=== PATIENT | female | born 1965 | race Caucasian/White ===

== ENCOUNTER 2021-05-24 14:41 | Emergency (ER) | payer BC, MEDICARE ==
[~2021-05-24] VITALS: Ht 167 cm; Wt 200.0 kg
[~2021-05-24 14:41] MED LIST: ARIP10TA2; ARIP2TAB3 PO; ASP81TEC PO; ATOM100C PO; ATOM10CA; ATOM25CA3 PO; CTLP20T PO; DULO30CA PO; FURO-125 PO; HCT25T PO; LABE100T2; LABE100T2 PO; LEVO200T39 PO; MAGN400T39 PO; METO50TA15 PO; MTF500T; MTF500T PO; NALT1TAB PO; NAPR-1071 PO; PANT20TA2 PO; POTASSIUM PO; TOPI25TA2 PO; TPR25T PO
--- NOTE | 2021-05-24 14:57 | ED Cardiac General ---
History of Present Illness General Chief Complaint: Chest Pain Stated Complaint: CP/BACK OF NECK PAIN/PIERRE Source: patient Exam Limitations: no limitations History of Present Illness Date Seen by Provider: May 24, 2021 Time Seen by Provider: 14:47 Initial Comments 56-year-old female with past medical history of CHF, diabetes, hypertension coming in due to chest pressure and feeling slightly short of breath. She woke up this morning at 7 AM and has had constant moderate pressure that nothing seems to make better or worse. She says this happens not infrequently and she is typically diagnosed with anxiety. She says she did take 4 baby aspirin prior to coming. Her vice president network is with a different facility. She says her last echo was "normal". She denies ever having a heart attack or having any stents. She denies ever having a blood clot. Nothing seems to really make the discomfort better or worse. She does say she is around 14 days out from having COVID as well. Allergies and Home Medications Allergies Coded Allergies: shrimp (Verified Allergy, Severe, 04/19/16) Sulfa (Sulfonamide Antibiotics) (Verified Allergy, Unknown, 04/19/16) almond (Unverified Allergy, Unknown, 04/20/16) FROM UNCODED ALLERGIES gluten (Unverified Allergy, Unknown, 04/20/16) FROM UNCODED ALLERGIES Patient Home Medication List Home Medication List Reviewed: Yes Furosemide (Lasix) 20 Mg Tablet, 20 MG PO DAILY, (Reported) Entered as Reported by: KARI FALK on 04/19/16 1632 Levothyroxine Sodium (Levothroid) 200 Mcg Tablet, 200 MCG PO DAILY, (Reported) Entered as Reported by: ROXANNE PATRICK on 01/10/11 1250 Magnesium Oxide (Magnesium) 400 Mg Tablet, 400 MG PO BID, (Reported) Entered as Reported by: KARI FALK on 04/19/16 1633 Metformin Hcl (Metformin 500 Mg) 500 Mg Tablet, 500 MG PO UD, (Reported) Entered as Reported by: ROXANNE PATRICK on 01/10/11 1250 Metoprolol Tartrate (Metoprolol Tartrate) 50 Mg Tablet, 50 MG PO BID, (Reported) Entered as Reported by: KARI FALK on 04/19/16 1632 Naltrexone HCl/Bupropion HCl (Contrave ER 8-90 mg Tablet) 1 Each Tablet.er, 1 EACH PO BID, (Reported) Entered as Reported by: KARI FALK on 04/19/16 163 Naproxen (Naprosyn) 500 Mg Tablet, 500 MG PO BID, (Reported) Entered as Reported by: KARI FALK on 04/19/16 163 Pantoprazole Sodium (Protonix) 20 Mg Tablet.dr, 20 MG PO DAILY, (Reported) Entered as Reported by: KARI FALK on 04/19/16 163 [Potassium] , PO DAILY, (Reported) Entered as Reported by: KARI FALK on 04/19/16 1657 Review of Systems Review of Systems Constitutional: No chills, No fever EENTM: No Blurred Vision Respiratory: Cough, Shortness of Air Cardiovascular: Chest Pain Gastrointestinal: Denies Abdominal Pain, Denies Diarrhea, Denies Nausea, Denies Vomiting Genitourinary: Denies Burning Musculoskeletal: no symptoms reported Skin: no symptoms reported Psychiatric/Neurological: No Symptoms Reported Endocrine: No Symptoms Reported Hematologic/Lymphatic: No Symptoms Reported All Other Systems Reviewed Negative Unless Noted: Yes Past Nxjkuck-Dmqfxe-Phsfao Hx Patient Social History Tobacco Use?: No Substance use?: No Alcohol Use?: No Pt feels they are or have been: No Immunizations Up To Date Tetanus Booster (TDap): Unknown Seasonal Allergies Seasonal Allergies: No Past Medical History Surgery/Hospitalization HX: PMH:DM, CHF, HYPOTHYROIDISM, PREMATURE VENT. COMPLEXES, LYMPHADEMA, CHRONIC DEPRESSION, FIBROMYALGIA. SURGERIES:1993 GALLBALDER REMOVAL. Section, Gallbladder Sleep Apnea Currently Using CPAP: Yes Currently Using BIPAP: No Coronary Artery Disease Reproductive Disorders: No Chronic Back Pain Hypothyroidsim, Diabetes, Non-Insulin dep ADD/ADHD, Sleep Difficulties, Anxiety, Bipolar, Depression Family Medical History Cardiovascular disease 19 FATHER G8 BROTHER Completed stroke 19 MOTHER Diabetes mellitus 19 FATHER 19 MOTHER FH: obesity G8 BROTHER Heart Disease, Cancer, Diabetes, Stroke Physical Exam Vital Signs Vital Signs - First Documented 05/24/21 14:45 Temp 35.1 Pulse 94 Resp 22 B/P (MAP) 177/111 (133) Pulse Ox 94 O2 Delivery Room Air Capillary Refill : Height, Weight, BMI Height: 5'6.00" Weight: 404lbs. 9.0oz. 183.589180dv; 65.4 BMI Method:Stated General Appearance: No Apparent Distress, WD/WN HEENT: PERRL/EOMI, Normal ENT Inspection, Pharynx Normal Neck: Full Range of Motion, Normal Inspection, Non Tender, Supple Respiratory: Chest Non Tender, Lungs Clear, Normal Breath Sounds, No Accessory Muscle Use, No Respiratory Distress Cardiovascular: Regular Rate, Rhythm, Normal Peripheral Pulses Gastrointestinal: Normal Bowel Sounds, Non Tender, Soft Extremity: Normal Capillary Refill, Normal Inspection, Normal Range of Motion, Non Tender, No Calf Tenderness, Pedal Edema Neurologic/Psychiatric: Alert, No Motor/Sensory Deficits, Normal Mood/Affect Skin: Normal Color, Warm/Dry Lymphatic: No Adenopathy Progress/Results/Core Measures Results/Orders Lab Results Laboratory Tests Test 05/24/21 14:53 05/24/21 15:10 Range/Units White Blood Count 10.0 4.3-11.0 10^3/uL Red Blood Count 5.34 H 3.80-5.11 10^6/uL Hemoglobin 14.4 11.5-16.0 g/dL Hematocrit 47 35-52 % Mean Corpuscular Volume 87 80-99 fL Mean Corpuscular Hemoglobin 27 25-34 pg Mean Corpuscular Hemoglobin Concent 31 L 32-36 g/dL Red Cell Distribution Width 14.9 H 10.0-14.5 % Platelet Count 219 130-400 10^3/uL Mean Platelet Volume 11.6 9.0-12.2 fL Immature Granulocyte % (Auto) 0 % Neutrophils (%) (Auto) 59 42-75 % Lymphocytes (%) (Auto) 31 12-44 % Monocytes (%) (Auto) 6 0-12 % Eosinophils (%) (Auto) 3 0-10 % Basophils (%) (Auto) 1 0-10 % Neutrophils # (Auto) 5.9 1.8-7.8 10^3/uL Lymphocytes # (Auto) 3.1 1.0-4.0 10^3/uL Monocytes # (Auto) 0.6 0.0-1.0 10^3/uL Eosinophils # (Auto) 0.3 0.0-0.3 10^3/uL Basophils # (Auto) 0.1 0.0-0.1 10^3/uL Immature Granulocyte # (Auto) 0.0 0.0-0.1 10^3/uL Percent Immature Platelet Fraction 8.3 H 0.0-7.6 % Prothrombin Time 13.2 12.2-14.7 SEC INR Comment 1.0 0.8-1.4 Activated Partial Thromboplast Time 22 L 24-35 SEC Sodium Level 141 135-145 MMOL/L Potassium Level 4.8 3.6-5.0 MMOL/L Chloride Level 106 98-107 MMOL/L Carbon Dioxide Level 19 L 21-32 MMOL/L Anion Gap 16 H 5-14 MMOL/L Blood Urea Nitrogen 20 H 7-18 MG/DL Creatinine 0.86 0.60-1.30 MG/DL Estimat Glomerular Filtration Rate 80 BUN/Creatinine Ratio 23 Glucose Level 99 70-105 MG/DL Calcium Level 9.4 8.5-10.1 MG/DL Corrected Calcium 9.2 8.5-10.1 MG/DL Total Bilirubin 0.5 0.1-1.0 MG/DL Aspartate Amino Transf (AST/SGOT) 34 5-34 U/L Alanine Aminotransferase (ALT/SGPT) 46 0-55 U/L Alkaline Phosphatase 112 40-136 U/L Troponin I < 0.028 <0.028 NG/ML B-Type Natriuretic Peptide 18.6 <100.0 PG/ML Total Protein 7.7 6.4-8.2 GM/DL Albumin 4.2 3.2-4.5 GM/DL SARS-CoV-2 RNA (RT-PCR) Detected Negative My Orders Orders - JASWINDER GRAHAM MD Cbc With Automated Diff (05/24/21 14:52) Chest 1 View, Ap/Pa Only (05/24/21 14:52) Ekg Tracing (05/24/21 14:52) Comprehensive Metabolic Panel (05/24/21 14:52) Protime With Inr (05/24/21 14:52) Partial Thromboplastin Time (05/24/21 14:52) O2 (05/24/21 14:52) Monitor-Rhythm Ecg Trace Only (05/24/21 14:52) Ed Iv/Invasive Line Start (05/24/21 14:52) Bnp Sameer (05/24/21 14:52) Troponin I Sameer (05/24/21 14:52) Nitroglycerin Ointment (Nitrobid Ointme (05/24/21 14:52) Covid 19 Inhouse Test (05/24/21 15:10) Vital Signs/I&O 05/24/21 05/24/21 14:45 14:45 Temp 35.1 35.1 Pulse 94 94 Resp B/P (MAP) 177/111 (133) 177/111 Pulse Ox 94 O2 Delivery Room Air Room Air Progress Progress Note : Progress Note 56-year-old female with above history coming in due to chest discomfort. ABCs were intact and vitals were stable on presentation. She is mildly hypertensive and given the chest discomfort with that we will place Nitropaste on her chest. She has already received aspirin. EKG without any acute ischemic changes. An IV was placed and basic labs including cardiac biomarkers ordered. Chest x-ray also ordered. Initial ECG Impression Date: May 24, 2021 Initial ECG Impression Time: 14:50 Initial ECG Rate: 85 Initial ECG Rhythm: Normal Sinus Comment Narrow QRS, normal axis, no significant ST changes or T wave abnormalities Diagnostic Imaging Diagonstic Imaging: Xray Plain Films/CT/US/NM/MRI: chest Comments NAME: BERTIN MILLER [facility] REC#: [id number] PT STATUS: REG ER : 1965 PHYSICIAN: JASWINDER GRAHAM MD ADMIT DATE: 05/24/21/ER Draft Date of Exam:05/24/21 CHEST 1 VIEW, AP/PA ONLY INDICATION: Chest pain. COMPARISON: Prior study from January 09, 2011. FINDINGS: There is no alveolar consolidation or evidence to suggest pneumonia. There is no effusion. There is no pneumothorax. Heart size appears appropriate. Pulmonary vascularity within normal limits without current evidence of edema or failure. There is no acute or suspicious osseous abnormality. IMPRESSION: No radiographic evidence of an acute cardiopulmonary process. Dictated on workstation # [id number] Dict: 05/24/21 1543 Trans: 05/24/21 1549 [facility] [id number] Interpreted by: SARA CURIEL MD Electronically signed by: Departure Impression Primary Impression: Chest pain Qualified Codes: R07.9 - Chest pain, unspecified Additional Impression: COVID-19 Disposition: 01 HOME, SELF-CARE Condition: Stable Departure-Patient Inst. Decision time for Depature: 16:00 Referrals: CHIQUIS MATHUR MD FACP [facility] NO,LOCAL PHYSICIAN (PCP) Primary Care Physician Patient Instructions: COVID-19 (DC) Add. Discharge Instructions: You are seen in the emergency department for chest discomfort. Based on your labs it does not appear like you have had a heart attack or or having one. It does not look like you have pneumonia, but your Covid test today is positive. We are seeing patients with COVID having chest discomfort similar to this. I recommend buying an oxygen saturation probe which you can get at any pharmacy or [employer] to check what your oxygen is. If you get 89% or lower and you are taking deep breaths and cannot get it back up, that is when I recommend coming back to the ER. Otherwise please follow-up with a vice president network of your choosing. We have many here, and I will give you one, if you do not have one you follow-up with. Work/School Note: Work Release Form Date Seen in the Emergency Department: May 24, 2021 Return to Work: May 29, 2021 Restrictions: Return-No Fever (24hrs) JASWINDER GRAHAM MD May 24, 2021 14:57
[2021-05-24 15:03] LABS: HEMOGLOBIN 14.4 g/dL (11.5-16.0); MEAN CORPUSCULAR VOLUME 87 fL (80-99)
[2021-05-24 15:05] LABS: BASOPHILS # (AUTO) 0.1 10^3/uL (0.0-0.1); BASOPHILS % (AUTO) 1 % (0-10); EOSINOPHILS # (AUTO) 0.3 10^3/uL (0.0-0.3); EOSINOPHILS % (AUTO) 3 % (0-10); HEMATOCRIT 47 % (35-52); LYMPHOCYTES # (AUTO) 3.1 10^3/uL (1.0-4.0); LYMPHOCYTES % (AUTO) 31 % (12-44); MEAN CORPUSCULAR HEMOGLOBIN 27 pg (25-34); MEAN CORPUSCULAR HGB CONC 31 g/dL (32-36); MEAN PLATELET VOLUME 11.6 fL (9.0-12.2); MONOCYTES # (AUTO) 0.6 10^3/uL (0.0-1.0); MONOCYTES % (AUTO) 6 % (0-12); NEUTROPHILS # (AUTO) 5.9 10^3/uL (1.8-7.8); NEUTROPHILS % (AUTO) 59 % (42-75); PLATELET COUNT 219 10^3/uL (130-400)
[2021-05-24] MEDS: NITROGLYCERIN 2% OINT 1 GM UNIT DOSE PACKET TOP STA (15:05)
[2021-05-24 15:17] LABS: PROTHROMBIN TIME PATIENT 13.2 SEC (12.2-14.7)
[2021-05-24 15:25] LABS: ALBUMIN 4.2 GM/DL (3.2-4.5); BILIRUBIN,TOTAL 0.5 MG/DL (0.1-1.0); CALCIUM 9.4 MG/DL (8.5-10.1); CREATININE SERUM 0.86 MG/DL (0.60-1.30); POTASSIUM 4.8 MMOL/L (3.6-5.0); TOTAL PROTEIN 7.7 GM/DL (6.4-8.2)
--- NOTE | 2021-05-24 15:49 | Diagnostic Imaging Report ---
INDICATION: Chest pain. COMPARISON: Prior study from January 09, 2011. FINDINGS: There is no alveolar consolidation or evidence to suggest pneumonia. There is no effusion. There is no pneumothorax. Heart size appears appropriate. Pulmonary vascularity within normal limits without current evidence of edema or failure. There is no acute or suspicious osseous abnormality. IMPRESSION: No radiographic evidence of an acute cardiopulmonary process. Dictated by: Dictated on workstation # [id number]
[2021-05-24 15:58] VITALS: BP 154/91
== END 2021-05-24 15:58 | disposition home or self-care (01) ==
LOC: EDUNIT# 14:41 → ER 14:42
DX: U07.1 COVID-19 (principal); E11.9 Type 2 diabetes mellitus without complications; E03.9 Hypothyroidism, unspecified; I50.9 Heart failure, unspecified; G47.30 Sleep apnea, unspecified; F32.A Depression, unspecified; F31.9 Bipolar disorder, unspecified; F90.9 Attention-deficit hyperactivity disorder, unspecified type; I25.10 Atherosclerotic heart disease of native coronary artery without angina pectoris; Z79.84 Long term (current) use of oral hypoglycemic drugs; Z79.899 Other long term (current) drug therapy; Z79.890 Hormone replacement therapy
CPT/HCPCS: 36415; 71045; 80053; 83880; 84484; 85025; 85610; 85730; 87636; 93005; 93041